=== PATIENT | female | born 1955 | race Caucasian/White ===

== ENCOUNTER 2017-06-29 14:03 | Emergency (ER) | payer BC | END 2017-06-29 15:39 | disposition home or self-care (01) | LOC: NAV ERS 14:03 | DX: M17.12 Unilateral primary osteoarthritis, left knee (principal); E03.9 Hypothyroidism, unspecified; I10 Essential (primary) hypertension; Z87.891 Personal history of nicotine dependence; Z79.899 Other long term (current) drug therapy | CPT/HCPCS: 85379; 99283 ==

== ENCOUNTER 2017-12-04 20:00 | Emergency (ER) | payer BC ==
[2017-12-04] MEDS ORDERED: Acetaminophen 500 MG TAB ONE (20:23)
[2017-12-04] MEDS ORDERED: Ondansetron ODT 4 MG TAB ONE ×2 (20:23→21:34)
[2017-12-04] MEDS ORDERED: Sodium Chloride 0.9% 1,000 ML ONE ×2 (20:28→23:05)
[2017-12-04 20:48] LABS: Clarity Clear (Clear); Specific Gravity, Urine 1.015 (1.005-1.030)
[2017-12-04 20:54] LABS: Hemoglobin 14.3 g/dL (12.0-16.0); Platelet Count 316 thou/uL (130-400); RBC Distribution Width 11.1 % (11.5-14.5); Red Blood Cell (RBC) Count 4.79 mill/uL (4.20-5.40); White Blood Cell (WBC) Count 27.8 thou/uL (4.8-10.8)
[2017-12-04 21:00] LABS: ALT (SGPT) 10 U/L (8-55); AST (SGOT) 20 U/L (5-34); Alkaline Phosphatase 121 U/L (40-150); Anion Gap 19 mmol/L (10-20); BUN (Urea Nitrogen) 13 mg/dL (9.8-20.1); Bacteria/HPF Rare-Few HPF (None Seen); Bilirubin, Total 1.1 mg/dL (0.2-1.2); Calc. Creatinine Clearance 0 mL/min (70-130); Calcium 10.1 mg/dL (7.8-10.44); Carbon Dioxide 22 mmol/L (23-31); Chloride 103 mmol/L (98-107); Estimated GFR-MDRD 42; Globulin 3.9 g/dL (2.4-3.5); Glucose 128 mg/dL (80-115); Potassium 3.6 mmol/L (3.5-5.1); Protein, Total 7.9 g/dL (6.0-8.3); RBC/HPF 0-3 HPF (0-3); Sodium 140 mmol/L (136-145); WBC/HPF 21-50 HPF (0-3)
[2017-12-04 21:10] LABS: Band 1 % (5-11); Lymphocytes 3 % (21-51); MDiff Complete? YES; Neutrophil 96 % (42-75); PLT Morphology Comment Appears Adequate; RBC Morphology Normal
[2017-12-04] MEDS ORDERED: cefTRIAXone\\ROCEPHIN 1 GM VIAL ONE (21:17)
[2017-12-04] MEDS ORDERED: Sodium Chloride 0.9% 100 ML ONE (21:18)
[2017-12-04] MEDS ORDERED: Azithromycin 500 MG VIAL ONE (21:24)
[2017-12-04] MEDS ORDERED: Sodium Chloride 0.9% 250 ML 250 ML ONE (21:24)
[2017-12-04] MEDS ORDERED: Oseltamivir 75 MG CAP ONE (21:34)
--- NOTE | 2017-12-04 21:38 | RAD ---
TWO VIEWS CHEST 12/04/17 PROVIDED CLINICAL HISTORY: Cough and fever. FINDINGS: Comparison is made with the study dated 12/21/12. The cardiac and mediastinal silhouette is within normal limits. There is air space disease present wi thin the right mid lung zone on the frontal view not definitely localized on the lateral, compatible with pneumonia in the appropriate clinical context. The lungs appear otherwise clear. No pleural flui d or pneumothorax apparent. IMPRESSION: Right sided air space disease compatible with pneumonia in the appropriate clinical context. Followup chest radiographs are recommended after treatment to evaluate for resolution. POS: [facility]
[2017-12-04] MEDS ORDERED: Promethazine HCl 25 MG/ML VIAL ONE (21:41)
== END 2017-12-05 | disposition home or self-care (01) ==
LOC: NAV ERS 20:00
DX: J11.00 Influenza due to unidentified influenza virus with unspecified type of pneumonia (principal); E03.9 Hypothyroidism, unspecified; I10 Essential (primary) hypertension; Z87.891 Personal history of nicotine dependence; Z79.899 Other long term (current) drug therapy
CPT/HCPCS: 71046; 80053; 81003; 81015; 83605; 85025; 87040; 87149; 96361; 96365; 96375; J0456; J0696; J2550; J7050; Q0162

== ENCOUNTER 2021-01-28 03:40 | Emergency (ER) | payer BC ==
[2021-01-28] MEDS ORDERED: Amoxicillin/Potassium Clav 875 MG TAB ONE (04:19)
== END 2021-01-28 04:22 | disposition home or self-care (01) ==
LOC: NAV ERS 03:40
DX: K08.89 Other specified disorders of teeth and supporting structures (principal); E03.9 Hypothyroidism, unspecified; I10 Essential (primary) hypertension; Z87.891 Personal history of nicotine dependence
CPT/HCPCS: 99282

== ENCOUNTER 2021-05-05 02:26 | Emergency (ER) | payer BC ==
[2021-05-05 02:50] LABS: Bilirubin Negative (Negative); Blood, Urine Negative (Negative); Clarity Clear (Clear); Glucose, Urine (Dipstick) Negative (Negative); Ketone, Urine Negative (Negative); Leukocyte Negative (Negative); Nitrite Negative (Negative); Protein, Urine (Dipstick) 30 mg/dL (Neg-Trace); Urobilinogen 0.2 mg/dL (Less than 2); pH, Urine 5.5 (5.0-9.0)
[2021-05-05 02:51] LABS: Specific Gravity, Urine 1.031 (1.002-1.036)
[2021-05-05 02:53] LABS: #Basophils 0.1 thou/uL (0.0-0.2); #Eosinphils 0.1 thou/uL (0.0-0.7); #Monocytes 0.4 thou/uL (0.11-0.59); #Neutrophils 3.3 thou/uL (1.40-6.50); %Eosinophils 1.8 % (0.0-10.0); %Lymphocytes 33.6 % (21.0-51.0); %Monocytes 7.2 % (0.0-10.0); %Neutrophils 56.4 % (42.0-75.0); Hemoglobin 12.8 g/dL (12.0-16.0); Mean Corpuscular HGB CONC 31.6 g/dL (32.0-36.0); Mean Corpuscular Hemoglobin 31.2 pg (27.0-31.0); Mean Corpuscular Volume 98.6 fL (78.0-98.0); Mean Platelet Volume 9.2 fL (7.4-10.4); Platelet Count 210 thou/uL (130-400); RBC Distribution Width 11.8 % (11.5-14.5); White Blood Cell (WBC) Count 5.8 thou/uL (4.8-10.8)
[2021-05-05 02:54] LABS: RBC/HPF None Seen HPF (0-3); Squamous Epithelial 0-3 HPF (0-3); WBC/HPF 0-3 HPF (0-3)
[2021-05-05 02:55] LABS: Bacteria/HPF Rare-Few HPF (None Seen)
[2021-05-05 03:07] LABS: ALT (SGPT) 9 U/L (8-55); AST (SGOT) 12 U/L (5-34); Alkaline Phosphatase 93 U/L (40-110); Anion Gap 14 mmol/L (10-20); BUN (Urea Nitrogen) 15 mg/dL (9.8-20.1); Bilirubin, Total 0.5 mg/dL (0.2-1.2); Calc. Creatinine Clearance 0 mL/min (70-130); Calcium 9.1 mg/dL (7.8-10.44); Carbon Dioxide 25 mmol/L (23-31); Chloride 111 mmol/L (98-107); Globulin 2.9 g/dL (2.4-3.5); Glucose 100 mg/dL (80-115); Potassium 3.9 mmol/L (3.5-5.1); Protein, Total 6.9 g/dL (5.8-8.1); Sodium 146 mmol/L (136-145)
[2021-05-05] MEDS ORDERED: Ondansetron PF 4 MG/2 ML Vial ONE (03:27)
[2021-05-05] MEDS ORDERED: Ondansetron ODT 4 MG TAB ONE (03:36)
== END 2021-05-05 03:42 | disposition home or self-care (01) ==
LOC: NAV ERS 02:26
DX: R10.31 Right lower quadrant pain (principal); R19.7 Diarrhea, unspecified; R11.0 Nausea; I10 Essential (primary) hypertension; E03.9 Hypothyroidism, unspecified; Z87.891 Personal history of nicotine dependence; Z79.899 Other long term (current) drug therapy
CPT/HCPCS: 80053; 81003; 81015; 85025; 99284; J2405; Q0162

== ENCOUNTER 2023-02-15 18:24 | Emergency (ER) | payer BC, MEDICARE | END 2023-02-15 20:27 | disposition home or self-care (01) | LOC: NAV ERS 18:24 | DX: J20.9 Acute bronchitis, unspecified (principal); J06.9 Acute upper respiratory infection, unspecified; Z87.891 Personal history of nicotine dependence | CPT/HCPCS: 71046; 94640; 94664; J7611 ==

== ENCOUNTER 2023-11-07 17:01 | Emergency (ER) | payer OTHER, MEDICARE ==
[2023-11-07] MEDS ORDERED: Lidocaine/Transparent Dressing 1 EACH KIT ONE (17:56)
== END 2023-11-07 18:30 | disposition home or self-care (01) ==
LOC: NAV ERS 17:01
DX: S01.01XA Laceration without foreign body of scalp, initial encounter (principal); I10 Essential (primary) hypertension; Z87.891 Personal history of nicotine dependence; W01.10XA Fall on same level from slipping, tripping and stumbling with subsequent striking against unspecified object, initial encounter
CPT/HCPCS: 12001; 99282

== ENCOUNTER 2024-04-16 16:24 | Emergency (ER) | payer MEDICARE ==
[2024-04-16] MEDS ORDERED: Ipratropium/Albuterol 3 ML NEB ONE (18:27)
[2024-04-16] MEDS ORDERED: predniSONE 20 MG TAB ONE (18:28)
== END 2024-04-16 19:02 | disposition home or self-care (01) ==
LOC: NAV ERS 16:24
DX: J44.9 Chronic obstructive pulmonary disease, unspecified (principal); I10 Essential (primary) hypertension; Z87.891 Personal history of nicotine dependence
CPT/HCPCS: 71046; 94640; 94664; J7512; J7620